=== PATIENT | female | born 1980 | race Caucasian/White ===

== ENCOUNTER 2023-03-17 05:21 | Day surgery (SDC) | payer MEDICAID, SELFPAY ==
[2023-03-11 10:40] LABS: Hematocrit 44.1 % (37-47); Hemoglobin 14.5 g/dL (12.0-15.0); Mean Corp Hgb Conc 32.9 g/dL (32-36); Mean Corpuscular Hgb 29.3 pg (27.0-32.0); Mean Corpuscular Volume 89.1 fL (81-99); Mean Platelet Vol. 9.8 fl (6.2-12.0); Platelet Count 309 K/mm3 (150-450); RBC Distribution Width CV 12.3 % (11.6-14.6); RBC Distribution Width SD 40.4 fl (35.1-43.9); Red Blood Count 4.95 M/mm3 (4.2-5.4); White Blood Count 6.3 K/mm3 (4.4-11.0)
[2023-03-17] VITALS (21 sets, daily range): BP systolic 118–158; BP diastolic 67–91; PULSE 68–112; RESP 12–18; TEMP 36.1–36.6; O2SAT 94–100; BMI 34.2
--- NOTE | 2023-03-17 | HYST_PTH ---
PATIENT: GUSTAVO SWARTZ LOC: [facility] [place] U#:[id number] AGE/SX: 42/F ROOM: RE03/17/[address]: Dr. Kishore Awad MD : 1980 BED: DIS: 03/17/2023 SPEC #: [id number] RECD: 03/17/23 13:02 STATUS: MEDHAT RUDD #: [id number] ENRIQUE: 03/17/23 00:[address]: Kishore Awad DEPT: SURGICAL PATHOLOGY RECD BY: Ady Osorio ENTERED: 03/17/23 13:02 SP TYPE: HYSTERECT OTHR DR: Dr. Tu Sutton MD Tissues: Uterus, NOS Procedures: Surgery Specimen Level V HEADER OPERATION: ERAS, lap robotic hysterectomy, bilateral salpingo-oophorectomy, cysto PRE-OP DIAGNOSIS: Pelvic pain TISSUE SUBMITTED: Uterus, cervix, bilateral fallopian tubes and bilateral ovaries MICROSCOPIC DIAGNOSIS Uterus, cervix, bilateral fallopian tubes and bilateral ovaries, hysterectomy and bilateral salpingo-oophorectomy: Cervix ? mild chronic inflammation. Endometrium ? proliferative endometrium. Myometrium ? adenomyosis. - An intramural leiomyoma (1.9 cm in greatest dimension). Bilateral fallopian tubes - no pathologic diagnosis. Bilateral ovaries ? physiologic follicular cyst and cystic corpora albicans. Bilateral paratubal cysts. SJ:rg 03/18/2023 MICROSCOPIC DESCRIPTION Slides are reviewed. GROSS DESCRIPTION Received in fixative is one container labeled with the patient's name and designated uterus. The specimen consists of a uterus with attached cervix and detached ovaries and fallopian tubes. The uterus with cervix measures 10.5 x 8.0 x 5.0 cm and weighs 127 gm. The ectocervix is unremarkable. A Filshie-type clip is present at the left tubal pedicle and is intact. The endocervical canal measures 3.6 cm in length and is grossly unremarkable. The triangular endometrial cavity measures 5.0 x 3.0 cm. The velvety, reddish-crowe endometrium measures up to 0.2 cm in thickness. The myometrium measures 2.0 cm in average thickness and contains a firm, rubbery crowe nodule measuring 1.9 x 1.7 cm and grossly resembling a leiomyoma. The right and left tubo-ovarian complexes are not oriented. One ovary measures 3.2 x 3.0 x 1.0 cm. Serial sections of this ovary reveal a single cyst measuring 2.0 cm in greatest dimension and containing clear fluid. The adjacent fallopian tube measures 5.0 cm in length and 0.4 cm in average diameter. No tubo-ovarian adhesions are identified. The fimbrial end contains a paratubal cyst measuring 1.2 cm in greatest dimension and containing clear fluid. The other ovary is similar in appearance and measures 3.3 x 2.5 x 1.7 cm. Serial sections reveal two cysts ranging in size from 0.5 to 0.7 cm and containing clear fluid. The adjacent fallopian tube is similar in appearance to the other fallopian tube and measures 5.0 cm in length and 0.6 cm in average diameter. Two smooth, glistening cysts are present adjacent to the fimbrial end ranging in size from 1.0 to 1.5 cm in greatest dimension. Traffic Chief sections are submitted in ten cassettes as follows: 1 - anterior cervix, 2??posterior cervix, 3 & 4 - anterior uterine wall, 5 & 6 - posterior uterine wall, 7 - myometrial nodule, bisected and totally submitted, 8 - one ovary and adjacent fallopian tube and paratubal cyst, 9 - the other ovary and paratubal cysts, 10 - the other fallopian tube. / AM:kathy 03/17/2023 TC:5 CPT: 06949
[2023-03-17] MEDS: Acetaminophen 500 MG Tablet 1000 MG PO (06:01)
[2023-03-17] MEDS: Gabapentin 600 MG Tablet PO (06:01)
[2023-03-17] MEDS: Magnesium 1 GM over 15 mins IV (06:05)
[2023-03-17] MEDS: Lactated Ringers 1,000 ML 40 ML IV (06:05)
[2023-03-17 06:20] LABS: Bedside Glucose 114 mg/dL (74-106)
[2023-03-17] MEDS: Scopolamine 1mg/72hr Patch 1 PATCH TD (06:35)
--- NOTE | 2023-03-17 07:00 | PCM.HP.BLA ---
History and Physical Date of Admission: 03/17/23 Chief complaint: Pelvic pain History present illness: 42-year-old arrives for robotic assisted total laparoscopic hysterectomy bilateral salpingo-oophorectomy and cystoscopy. No medical changes since last seen. All questions answered and consent signed. Obstetric history: G5, P4 with a history of 4 sections Past medical history: None Medications: None Past surgical history: section x4, laparoscopy x4, breast implants Allergies: No known drug allergies Social history: Denies smoking, alcohol use, drug use Family history: Denies history DVT or PE Review of systems: Besides above pertinent positives a full review of systems was performed and found to be negative Physical exam: Vitals: Blood pressure 118/86 pulse 68 respiratory rate 16 temperature 97.4 ?F SPO2 100% on room air General: Normal-appearing no acute distress HEENT: Normocephalic/atraumatic no cervical lymphadenopathy Cardiac/respiratory: No use of accessory muscles, nonlabored breathing Abdomen: Soft, nontender, nondistended Extremities: No peripheral edema normal peripheral pulses Psych: Normal affect and remainder nonpressured speech Assessment and plan: 42-year-old for robotic assisted total laparoscopic hysterectomy bilateral salpingo-oophorectomy and cystoscopy for pelvic pain. Educated patient on risk benefits alternatives of procedure include but are not limited to visceral or vascular injury, prolonged hospitalization, blood loss need for transfusion, reoperation. Discussed risks with bilateral oophorectomy. Patient states understanding all the above and wishes to proceed. All questions answered and consent signed.
[2023-03-17] MEDS: Cefazolin 2 GM in 0.9% Normal Saline 100 ML IV (07:37)
--- NOTE | 2023-03-17 09:16 | DCINST_ITS ---
Discharge Instructions Diet Discharge Diet: No restrictions Activity Discharge Activity: Return to Normal Activity, May Drive, May Shower and - (No tub baths for 2 weeks) May resume sexual activity in: 6-8 weeks Lifting Restrictions: No lifting over 25 pounds for 2 to 3 weeks Dressing / Incision Call your doctor if your incision/area has: Continuous Slow Oozing and Foul Smelling Discharge Call your doctor if you observe: Fever of 101 or Higher, Inability to urinate and Chest pain Follow Up Care Please Follow Up With: Kishore Awad MD When: 2 weeks postoperatively Test Results: Test results from this visit will be discussed in further detail at your follow- up appointment, if applicable. Discharge Plan Admission Attending Provider: Kishore Awad Primary Care Provider: Tu Sutton Discharge Orders/Prescriptions Prescriptions: New oxycodone 5 mg tablet 5 mg PO Q6H PRN (Reason: pain (scale score 7-10)) 5 Days Qty: 20 0RF Referrals / Follow Up: Tu Sutton MD [Primary Care Provider] - Disposition Disposition (needs filled in before D/C Order can be placed): Home, Self Care
--- NOTE | 2023-03-17 09:17 | PCM.OPRPT ---
Report of Operation Date of Procedure: 03/17/23 Pre-Operative Diagnosis: Pelvic pain Post-Operative Diagnosis: Pelvic pain Surgery/Procedure Performed:: Robotic assisted total laparoscopic hysterectomy about a salpingo-oophorectomy, cystoscopy Description of Surgical Findings:: Surgeon: Kishore Awad MD Anesthesia: General EBL: 50 cc Urine output: 450 cc IV fluids: 1000 cc Complications: None Specimen: Cervix, uterus, bilateral fallopian tubes, bilateral ovaries Findings: Normal uterus, tubes, and ovaries. Moderate amount of vesicouterine adhesions. Post procedure cystoscopy with bilateral ureteral jets noted and no pathology noted. Consent: Patient with pelvic pain elects for robotic assisted total laparoscopic hysterectomy bilateral salpingo-oophorectomy and cystoscopy. Patient understands risk of the procedure include but are not limited to visceral vascular injury, prolonged hospitalization, blood loss need for transfusion, reoperation. Patient state understanding and wished to proceed. All questions were answered and consent was signed. Procedure: Patient was brought back to the OR where general anesthesia was found to be adequate. 2 g of Ancef were given for infection prophylaxis. Patient was prepared and draped in dorsolithotomy position with yellowfin stirrups. A weighted speculum is placed in the posterior aspect of vagina and cervical dilators were used to dilate the cervix, uterine manipulator was placed. Varies needle was inserted at the umbilicus and water safety test was passed. Abdomen was insufflated. 8 mm robotic trocar was inserted supraumbilical midline under direct visualization. Laparoscope was inserted and above findings were noted. Bilateral lower quadrant 8 mm robotic trocars were inserted under direct visualization. 8 mm air seal trocar was inserted in the left upper quadrant under direct visualization. Robot was docked. Organ targeting was performed. Bilateral ureters were visualized and noted to be out of the operative field. Using a vessel sealer and monopolar scissors the left round ligament was identified and cut and cauterized, anterior and posterior portions of broad ligament were dissected. Bladder flap was developed. Left IP ligament was noted cut and cauterized, good hemostasis was noted. Left utero-ovarian ligament, fallopian tube, mesosalpinx were cut and cauterized. Left fallopian tube and ovary removed from uterus and placed in posterior cul-de-sac. Left uterine vessels were skeletonized. Left uterine vessels were cut and cauterized, lateralized beyond the level of colpotomy cup. Right round ligament was identified cut and cauterized, anterior and posterior portions of broad ligament were dissected. Bladder flap was fully developed beyond the level operative field after dissecting vesicouterine adhesions. Right IP ligament was noted cut and cauterized good hemostasis was noted. Right utero-ovarian ligament was identified cut and cauterized along with the mesosalpinx and cornua of the right fallopian tube. Right fallopian tube and ovary were placed in the posterior cul-de-sac. Right uterine vessels were skeletonized. Right uterine vessels were cut and cauterized, lateralized beyond the level colpotomy cup. Circumferential colpotomy was made. Cervix and uterus were removed from the abdominal cavity. Bilateral fallopian tubes and bilateral ovaries were removed from the abdominal cavity through the vagina. Irrigation was performed and good hemostasis was noted. Using a V-Loc suture the colpotomy was reapproximated in continuous running fashion. Good hemostasis was noted. Irrigation was performed, good hemostasis was noted. Insufflation pressure was decreased and good hemostasis was noted. Post procedure cystoscopy was performed and above findings were noted, bilateral ureteral jets were noted, and no pathology was noted. Abdominally vaginal cuff was reevaluated for hemostasis and good hemostasis was noted. Floseal was placed over the surgical sites. Good hemostasis was noted. Abdomen was desufflated, trocars were removed under direct visualization, good hemostasis was noted. Laparoscopic incisions were closed in a subcutaneous fashion, skin glue placed over the incisions. Good hemostasis was noted. All counts were correct x2. Patient tolerated procedure well and was brought to recovery in stable condition. outreach and education social worker: Jay Cintron
[2023-03-17] MEDS: Sugammadex Sodium 200 MG/2 ML VIAL IV (09:20)
[2023-03-17] MEDS: Ketorolac 30 MG/ML Syringe IV (10:11)
[2023-03-17] MEDS: Ondansetron ODT 4 MG Tablet PO (14:28)
[2023-03-17] MEDS: oxyCODONE 5 MG Tablet PO (14:30)
== END 2023-03-17 15:00 | disposition home or self-care (01) ==
LOC: SDC 05:21 → AC 05:22
PROVIDERS: Anesthesiology; PCP Family Medicine; Referring Provider Obstetrics & Gynecology; Visit Provider Obstetrics & Gynecology
PROC: 0UT94ZZ Resection of Uterus, Percutaneous Endoscopic Approach (ICD-10-PCS; CPT 58571; principal; 2023-03-17 07:10)
DX: N80.03 Adenomyosis of the uterus (principal); D25.1 Intramural leiomyoma of uterus; N83.8 Other noninflammatory disorders of ovary, fallopian tube and broad ligament; N72 Inflammatory disease of cervix uteri
CPT/HCPCS: 58571; S2900; 00840; 36415; 82962; 83735; 85027; 86850; 86900; 86901; 88307; J7120; J2405; J3475; J3490